=== PATIENT | female | born 1985 | race Caucasian/White ===

== ENCOUNTER 2019-09-16 10:19 | Emergency (ER) | payer OTHER ==
[2019-09-16 10:52] VITALS: BMI 29.0
--- NOTE | 2019-09-16 11:02 | PDOC ---
History of Present Illness - General Chief Complaint: Cold Symptoms Stated Complaint: FEVER/SORE THROAT/BACK PAIN Time Seen by Provider: 09/16/19 11:01 Past History - Past Medical History Allergies/Adverse Reactions: Allergies Allergy/AdvReac Type Severity Reaction Status Date / Time No Known Drug Allergies Allergy Verified 09/16/19 10:47 Home Medications: Ambulatory Orders Azithromycin [Zithromax Tri-Isaiah (3 DAYS) -] 500 mg PO DAILY #3 tablet 05/09/16 Loratadine [Claritin] 10 mg PO DAILY #10 tablet 05/09/16 Acetaminophen [Tylenol] 650 mg PO Q6H 10 Days #40 capsule 09/16/19 Cephalexin [Keflex] 500 mg PO BID 10 Days #20 capsule 09/16/19 Ondansetron [Zofran -] 4 mg PO Q8H PRN 7 Days #21 tablet 09/16/19 Anemia: No Asthma: No Cancer: No Cardiac Disorders: No CVA: No COPD: No CHF: No Dementia: No Diabetes: No GI Disorders: No Disorders: No HTN: Yes Hypercholesterolemia: No Liver Disease: No Seizures: No Thyroid Disease: No - Reproductive History (#): 3 Para: 2 Cervical CA: No Dysfunctional Uterine Bleeding: No Ectopic : No Endometrial CA: No Polycystic Ovaries: No Therapeutic (s) & number: No Tubal Ligation: No Spontaneous : 0 - Immunization History Immunization Up to Date: Yes - Psycho Social/Smoking Cessation Hx Smoking Status: No Smoking History: Never smoked Have you smoked in the past 12 months: No Number of Cigarettes Smoked Daily: 0 Information on smoking cessation initiated: No Hx Alcohol Use: No Drug/Substance Use Hx: No Substance Use Type: None Hx Substance Use Treatment: No *Physical Exam - Vital Signs Last Vital Signs Temp Pulse Resp BP Pulse Ox 102.5 F H 142 H 18 119/65 99 09/16/19 10:47 09/16/19 10:47 09/16/19 10:47 09/16/19 10:47 09/16/19 10:47 09/16/19 11:47 33 y/o [id number] female PMH HTN (tx with diet/exercise) and h/o pyelonephritis c/o back pain for 3 days. Pain is aching, constant, radiating in band-like fashion to RUQ/LUQ abdomen, and not alleviated by 500 mg acetominophen taken at home. She say sthis presenation is similar to her last hopsitalizaiton for kidney infection. There is associated nausea and BL temporal GARCIA. She denies dysuria, hematuria, hematochezia, diarrhea, constipation. She denies cough. No recent h/o travel, sick contacts, new meds/herbs, drugs/supplements GB and appendix intact LMP 23 Aug 2019, was normal, 4 days and 4 pads per day Fam hx :mother hypothyroidism Surg hx: c/s 2009, 2012 Social :denies cigaretes, etoh, and recreational drug use. Exercises at the gym. Lives at home with and 3 children Works as automotive service cashier in [employer] Sexual hx: sexually active wiht only. No h/o STI REVIEW OF SYSTEMS CONSTITUTIONAL: Absent: fever, chills, diaphoresis, generalized weakness, malaise, loss of appetite, weight change HEENT: Absent: rhinorrhea, nasal congestion, throat pain, throat swelling, difficulty swallowing, mouth swelling, ear pain, eye pain, visual changes CARDIOVASCULAR: Absent: chest pain, syncope, palpitations, irregular heart rate, li ghtheadedness, peripheral edema RESPIRATORY: Absent: cough, shortness of breath, dyspnea with exertion, orthopnea, wheezing, stridor, hemoptysis GASTROINTESTINAL: Absent: abdominal pain, abdominal distension, nausea, vomiting, diarrhea, constipation, melena, hematochezia GENITOURINARY: Absent: dysuria, frequency, urgency, hesitancy, hematuria, flank pain, genital pain MUSCULOSKELETAL: Absent: myalgia, arthralgia, joint swelling, back pain, neck pain SKIN: Absent: rash, itching, pallor HEMATOLOGIC/IMMUNOLOGIC: Absent: easy bleeding, easy bruising, lymphadenopathy, frequent infections ENDOCRINE: Absent: unexplained weight gain, unexplained weight loss, heat intolerance, cold intolerance NEUROLOGIC: Absent: headache, focal weakness or paresthesias, dizziness, unsteady gait, seizure, mental status changes, bladder or bowel incontinence PSYCHIATRIC: Absent: anxiety, depression, suicidal or homicidal ideation, hallucinations. GENERAL: AO x3 mild distress HEAD: NCAT EYES: HEIDI, EOMI, sclera anicteric, conjunctiva clear. No ptosis. ENT: Ears normal, nares patent, oropharynx clear without exudates, moist mucous membranes. NECK: Trachea midline, full range of motion, supple. LUNGS: CTAB , no wheezes, no crackles, no accessory muscle use. HEART: RRR, S1, S2 without murmur, rub or gallop. ABDOMEN: Soft, TTP RUQ/LUQ, nondistended, normoactive bowel sounds, no guarding, no rebound, no hepatosplenomegaly, no masses. CVA tenderness. NEG [place]. EXTREMITIES: 2+ pulses, warm, well-perfused, no edema. NEUROLOGICAL: Cranial nerves II through XII grossly intact. Normal speech, gait not observed. PSYCH: Normal mood, normal affect. SKIN: Warm, dry, normal turgor, no rashes or lesions noted SEPSIS 08/20 # pyelonephritis VS UTI VS influenza VS viral syndrome - CBC, CMP, UA, U cx, blood cx, CXR -NS, Ofirmev, - PT/APTT - Lactic acid - bHCG - CT ab/pelv if not 09/16/19 13:32 CXR NEG WBC 10.7 with left shift, + UA LE1+ and nitrite 09/16/19 14:46 CT a/p NEG Plan to dc home on keflex 500 mg po BID for 7 days f/u with Dr. Mckoy out-pt regarding RIGHT renal cyst ED Treatment Course - LABORATORY CBC & Chemistry Diagram: 09/16/19 11:45 09/16/19 11:45 Discharge - Discharge Information Problems reviewed: Yes Clinical Impression/Diagnosis: UTI (urinary tract infection) Qualifiers: Urinary tract infection type: acute cystitis Hematuria presence: without hematuria Qualified Code(s): N30.00 - Acute cystitis without hematuria Condition: Stable Disposition: HOME - Admission No - Additional Discharge Information Prescriptions: Acetaminophen [Tylenol] 650 mg PO Q6H 10 Days #40 capsule Cephalexin [Keflex] 500 mg PO BID 10 Days #20 capsule Ondansetron [Zofran -] 4 mg PO Q8H PRN 7 Days #21 tablet PRN Reason: Nausea And/Or Vomiting - Follow up/Referral - Patient Discharge Instructions Additional Instructions: TU VISITA Viniste al hospital porque tenas dolor de espalda. Lo vieron en el departamento de emergencias y se descubri que zakia donovan infeccin del tracto urinario. Debe beber muchos lquidos y gallito el medicamento krzysztof se indica a continuacin. Ests estable y puedes volver a casa. MEDICAMENTOS Por favor tome - Cephalexin 500 mg por va oral dos veces al da tennille 10 almanza. - Acetominofeno 650 mg cada 6 horas si siente dolor / tiene fiebre - Ondansetron 8 mg swapnil veces al da SI siente nuseas CUIDADO ADICIONAL Grayson donovan addy para geraldine a alejo proveedor de atencin primaria, el Dr. Mckoy, dentro de 1 semana a partir de hoy. En esta visita, discuta tambin el hallazgo en la TC del quiste de 5 mm en el polo inferior del rin DERECHO. INFORMACIN ADICIONAL Llame al 911 o acuda directamente al departamento de emergencias si experimenta recurrencia de los sntomas que lo llevaron al hospital, dolor de bianka inusual, cambio de visin, dificultad para respirar, dolor en el pecho, entumecimiento, hormigueo, prdida del estado de alerta / prdida de conocimiento, prdida de funcin , sangrado inusual o cualquier sntoma alarmante. ---- YOUR VISIT You came to the hospital because you were experiencing back pain. You were seen in the emergency department and found to have a urinary tract infection. You should drink plenty of fluids and take the medication as instructed below. You are stable and may return home. MEDICATIONS Please take - Cephalexin 500 mg by mouth twice a day for 10 days - Acetominophen 650 mg every 6 hours if you feel pain/have fever - Ondansetron 8 mg three times a day IF you feel nauseous ADDITIONAL CARE Please make an appointment to see your primary care provider, Dr. Mckoy, [address] from today. At this visit, please also discuss CT finding of 5 mm cyst in lower pole of RIGHT kidney. ADDITIONAL INFORMATION Please call 911 or come directly to the emergency department if you experience recurrence of the symptoms that brought you to the hospital, unusual headache, vision change, shortness of breath, chest pain, numbness, tingling, loss of alertness/awareness, loss of function, unusual bleeding or any alarming symptoms. - Post Discharge Activity
[2019-09-16] MEDS ORDERED: SODIUM CHLORIDE 0.9% 1000 ML INFUS.BAG IV ONE (11:05)
[2019-09-16] MEDS ORDERED: ACETAMINOPHEN 1000 MG/100 ML VIAL (NON FORMULARY) IVPB ONE (11:05)
[2019-09-16] MEDS ORDERED: ACETAMINOPHEN INJECTION 100 ML IVPB ONE (11:20)
[2019-09-16] MEDS ORDERED: SODIUM CHLORIDE 2,449 ML IV ONE ×2 (11:32→13:09)
[2019-09-16] MEDS ORDERED: ONDANSETRON 4 MG/2 ML VIAL IVPUSH ONE (11:52)
--- NOTE | 2019-09-16 12:16 | PDOC ---
Documentation entered by Hitesh Nicholas SCRIBE, acting as scribe for Iván Claire MD. Iván Claire MD: This documentation has been prepared by the Cristopher bettencourt Daniel, SCRIBE, under my direction and personally reviewed by me in its entirety. I confirm that the documentation accurately reflects all work, treatment, procedures, and medical decision making performed by me. Attending Attestation - Resident Resident Name: Jimi Ellington - ED Attending Attestation I have performed the following: I have examined & evaluated the patient, The case was reviewed & discussed with the resident, I agree w/resident's findings & plan, Exceptions are as noted - HPI HPI: 09/16/19 12:07 The patient is a 33 year old female with a past medical history of pyelonephritis, kidney stones (last one was 7 years ago), HTN, and here today for evaluation of flank pain. The patient reports that her flank pain began 3 days ago and notes associated fever, nausea, intermittent lightheadedness, burning with urination, and states that this feels similar to her prior pyelonephritis. Patient denies headache. Denies fever, chills. Denies chest pain, shortness of breath. Denies vomiting, diarrhea. Allergies: NKDA - Physicial Exam PE: 09/16/19 12:07 Vitals: Triage vital signs reviewed General Appearance: No acute distress, well nourished, well developed Head: Atraumatic Neck: Supple; No nuchal rigidity Chest Wall: Nontender Cardiac: Regular rate and rhythm, no murmurs, no rubs, no gallops Lungs: Clear to auscultation bilateral, good air movement bilaterally Abdomen: +right flank and abdominal tenderness. Soft, nondistended, normal bowel sounds Extremities: Full range of motion to all extremities, no cyanosis, clubbing, or edema Skin: Warm and dry, no rashes or lesions, no rash, no petechiae Neuro: AOX3 Psych: Normal mood, normal affect - Medical Decision Making 09/16/19 15:00 33 years old history and examination consistent with pyelonephritis CAT scan ordered to rule out stone no stone noted on CT Labs notable for slightly elevated white blood cell count lactic 2.2 reevaluation patient feels much better vital signs have normalized tolerating fluids. After IV fluids and Tylenol patient feels much better is now tolerating fluids by mouth patient given the option of admission for IV antibiotics vrs trial of oral antibiotics at home given that she feels better her pain is controlled her fever is reduced and she is tolerating fluids by mouth by mouth she would like to try a course of oral antibiotics We will discharge with 10-day course of Keflex Findings, the need for follow-up and strict return instructions discussed with patient
[2019-09-16 12:20] LABS: BASO % 0.3 % (0-2.0); EOS % 0.2 % (0-4.5); HEMATOCRIT 38.4 % (32.4-45.2); HEMOGLOBIN 13.1 GM/dL (10.7-15.3); LYMPH % 6.2 % (8-40); MCH 26.4 pg (25.7-33.7); MCHC 34.2 g/dl (32.0-36.0); MONO % 3.7 % (3.8-10.2); NEUT % 89.6 % (42.8-82.8); PLATELET COUNT 245 K/MM3 (134-434); RBC 4.99 M/mm3 (3.60-5.2); WHITE BLOOD COUNT 10.7 K/mm3 (4.0-10.0)
[2019-09-16 12:24] LABS: EPI CELLS 4.6 /HPF (0-5/HPF); HYALINE CASTS 10 /lpf (0-8); URINE APPEARANCE CLOUDY; URINE BACTERIA 1737.5 /hpf (NEGATIVE); URINE BILIRUBIN NEGATIVE (NEGATIVE); URINE COLOR YELLOW; URINE GLUCOSE (UA) NEGATIVE (NEGATIVE); URINE KETONE NEGATIVE (NEGATIVE); URINE LEUK ESTERASE 1+ (NEGATIVE); URINE NITRITE POSITIVE (NEGATIVE); URINE PROTEIN NEGATIVE (NEGATIVE); URINE RBC 4 /hpf (0-4); URINE UROBILINOGEN 0.2 mg/dL (0.2-1.0); URINE WBC 82 /hpf (0-5)
[2019-09-16 12:39] LABS: ALBUMIN 3.8 g/dl (3.4-5.0); ALK PHOS 80 U/L (45-117); ANION GAP 9 MMOL/L (8-16); BILIRUBIN,TOTAL 0.6 mg/dL (0.2-1); BLOOD UREA NITROGEN 7.6 mg/dL (7-18); CALCIUM 8.2 mg/dL (8.5-10.1); CHLORIDE 106 mmol/L (98-107); CO2 22 mmol/L (21-32); CREATININE 0.6 mg/dL (0.55-1.3); GLUCOSE,RANDOM 108 mg/dL (74-106); POTASSIUM 3.9 mmol/L (3.5-5.1); SGOT/AST 14 U/L (15-37); SGPT/ALT 19 U/L (13-61); SODIUM 137 mmol/L (136-145); TOT PROT 7.5 g/dl (6.4-8.2)
[2019-09-16 12:42] LABS: VENOUS PC02 35.5 mmHg (38-52); VENOUS PH 7.43 (7.31-7.41); VENOUS PO2 75.2 mmHg (28-48)
[2019-09-16] MEDS ORDERED: CIPROFLOXACIN 400 MG/D5W 400 MG/200 ML IVPB IVPB ONE (12:54)
[2019-09-16] MEDS ORDERED: CEFTRIAXONE 1 GM in DEXTROSE 5%-WATER - 100 ML IVPB ONE (13:07)
--- NOTE | 2019-09-16 13:16 | EKG ---
Test Reason : Blood Pressure : / mmHG Vent. Rate : 112 BPM Atrial Rate : 112 BPM P-R Int : 130 ms QRS Dur : 070 ms QT Int : 322 ms P-R-T Axes : 038 -04 047 degrees QTc Int : 439 ms SINUS TACHYCARDIA NONSPECIFIC T WAVE ABNORMALITY ABNORMAL ECG WHEN COMPARED WITH ECG OF 16-JAN-2013 19:15, NONSPECIFIC T WAVE ABNORMALITY, WORSE IN LATERAL LEADS Confirmed by BETARIS DAMIAN MD ([id number]) on 09/16/2019 1:16:39 PM Referred By: Confirmed By:BEATRIS DAMIAN MD
[2019-09-16] MEDS ORDERED: ONDANSETRON 4 MG/2 ML VIAL ONE (13:51)
[2019-09-16] MEDS ORDERED: CEFTRIAXONE 1 GM/50 ML BAG ONE (13:51)
[2019-09-16] MEDS ORDERED: KETOROLAC TROMETHAMINE 30 MG/1 ML VIAL IVPUSH ONE (14:58)
[2019-09-16] MEDS ORDERED: KETOROLAC TROMETHAMINE 30 MG/1 ML VIAL ONE (15:01)
[2019-09-16 15:09] VITALS: BP 98/62; PULSE 99; TEMP 98.8
== END 2019-09-16 16:22 | disposition home or self-care (01) ==
LOC: JER 10:19
PROC: 3E0337Z Introduction of Electrolytic and Water Balance Substance into Peripheral Vein, Percutaneous Approach (ICD-10-PCS; principal; 2019-09-16)
PROC: 3E03329 Introduction of Other Anti-infective into Peripheral Vein, Percutaneous Approach (ICD-10-PCS; 2019-09-16)
PROC: 3E033NZ Introduction of Analgesics, Hypnotics, Sedatives into Peripheral Vein, Percutaneous Approach (ICD-10-PCS; 2019-09-16)
PROC: 3E0333Z Introduction of Anti-inflammatory into Peripheral Vein, Percutaneous Approach (ICD-10-PCS; 2019-09-16)
PROC: 3E033GC Introduction of Other Therapeutic Substance into Peripheral Vein, Percutaneous Approach (ICD-10-PCS; 2019-09-16)
DX: N30.00 Acute cystitis without hematuria (principal)
CPT/HCPCS: 36415; 71045-TC-FY; 74177-TC; 80053; 81003; 82803; 83605; 84484; 84703; 85025; 87040; 87086; 87186; 93005; 93010; 96361; 96365; 96375; 99285-25; J0131; J7030; Q9967

== ENCOUNTER 2021-09-09 17:09 | Emergency (ER) | payer OTHER ==
[2021-09-09 17:39] VITALS: BMI 27.4
[2021-09-09] MEDS ORDERED: ACETAMINOPHEN 500 MG TABLET (FP) PO ONE (18:01)
[2021-09-09] MEDS ORDERED: ACETAMINOPHEN 325 MG TABLET (FP) ONE (18:06)
[2021-09-09] MEDS ORDERED: ACETAMINOPHEN 325 MG TABLET (FP) PO ONE (18:07)
[2021-09-09 20:03] LABS: EPI CELLS >36 /uL (0-25.1); HYALINE CASTS 17 /uL (0-3.1); PH,URINE 6.5 (5.0-8.0); URINE APPEARANCE CLOUDY; URINE BACTERIA 4780 /uL (0-1359); URINE BILIRUBIN NEGATIVE (NEGATIVE); URINE COLOR YELLOW; URINE GLUCOSE (UA) NEGATIVE (NEGATIVE); URINE KETONE TRACE (NEGATIVE); URINE LEUK ESTERASE 3+ (NEGATIVE); URINE NITRITE NEGATIVE (NEGATIVE); URINE PROTEIN 1+ (NEGATIVE); URINE WBC 763 /uL (0-25.8)
[2021-09-09 20:51] VITALS: BP 119/78; PULSE 87; TEMP 99
[2021-09-09 22:49] LABS: URINE RBC 355 /uL (0-23.9)
[2021-09-10 10:07] LABS: SARS-CoV-2 NAA Not Detected (Not Detected)
== END 2021-09-09 20:51 | disposition home or self-care (01) ==
LOC: JER 17:09
DX: N39.0 Urinary tract infection, site not specified (principal); R50.9 Fever, unspecified
CPT/HCPCS: 81003; 84703; 87086; 87804; 99283-25; C9803; U0003; U0005

== ENCOUNTER 2024-02-16 13:49 | Emergency (ER) | payer OTHER ==
[2024-02-16 14:02] VITALS: BP 123/67; PULSE 76; RESP 20; TEMP 98; BMI 29.9
[2024-02-16] MEDS ORDERED: ACETAMINOPHEN 500 MG TABLET (FP) ONE (15:02)
[2024-02-16] MEDS ORDERED: IBUPROFEN 400 MG TABLET (FP) PO ONE (15:02)
[2024-02-16] MEDS: ACETAMINOPHEN 500 MG TABLET (FP) PO ONE (15:04)
[2024-02-16] MEDS: IBUPROFEN 400 MG TABLET (FP) PO ONE (15:04)
== END 2024-02-16 17:43 | disposition home or self-care (01) ==
LOC: JERFT 13:49
DX: M77.51 Other enthesopathy of right foot and ankle (principal); M54.50 Low back pain, unspecified; W18.40XA Slipping, tripping and stumbling without falling, unspecified, initial encounter
CPT/HCPCS: 72100-TC-FY; 73502-TC-RT-FY; 99283-25

== ENCOUNTER 2024-03-30 04:46 | Day surgery (SDC) | payer OTHER ==
[2024-03-27 10:33] VITALS: BMI 31.4
[2024-03-30] MEDS ORDERED: LIDOCAINE HCL/PF 2% SDV 5ML VIAL ONE (07:47)
[2024-03-30] MEDS ORDERED: DEXAMETHASONE SOD PHOSPHATE 10 MG/1 ML VIAL ONE (07:47)
[2024-03-30] MEDS ORDERED: BUPIVACAINE HCL/PF 0.25% (2.5MG/ML) 10 ML VIAL ONE (07:58)
[2024-03-30] MEDS ORDERED: TRIAMCINOLONE ACET 40MG/1ML VIAL ONE (07:58)
[2024-03-30 10:43] VITALS: RESP 18
[2024-03-30] MEDS: LIDOCAINE HCL 1% PRESERVATIVE FREE - 30ML VIAL IJ ONE (12:11)
[2024-03-30] MEDS: TRIAMCINOLONE ACET 40MG/1ML VIAL IM ONE ×2 (12:12)
[2024-03-30] MEDS: IOHEXOL 180 MG/1 ML ML IJ ONE (12:13)
[2024-03-30] MEDS: BUPIVACAINE HCL/PF 0.5% (5 MG/ML) 30 ML VIAL IJ ONE (12:13)
[2024-03-30] MEDS ORDERED: ACETAMINOPHEN 500 MG TABLET (FP) PO PRN (12:54)
[2024-03-30 13:31] VITALS: BP 120/60; PULSE 74; TEMP 97.4
== END 2024-03-30 12:50 | disposition home or self-care (01) ==
LOC: JASU-SURG 04:46
PROVIDERS: ATTEND Pain Medicine Pain Medicine
PROC: 3E0U33Z Introduction of Anti-inflammatory into Joints, Percutaneous Approach (ICD-10-PCS; 2024-03-30)
PROC: 3E0U3BZ Introduction of Anesthetic Agent into Joints, Percutaneous Approach (ICD-10-PCS; principal; 2024-03-30 12:00)
DX: M16.11 Unilateral primary osteoarthritis, right hip (principal)
CPT/HCPCS: 76000-TC-FY; 81025; J1100